=== PATIENT | female | born 1995 | race Caucasian/White ===

== ENCOUNTER 2018-06-28 05:27 | Emergency (ER) | payer BC ==
[2018-06-28] MEDS ORDERED: SODIUM CHLORIDE 1,000 ML IV STA (06:14)
[2018-06-28] MEDS ORDERED: ACETAMINOPHEN 1000 MG/100 ML VIAL (NON FORMULARY) IVPB ONE (06:14)
[2018-06-28] MEDS ORDERED: ONDANSETRON 4 MG/2 ML VIAL IVPUSH ONE (06:14)
--- NOTE | 2018-06-28 06:21 | PDOC ---
History of Present Illness - General Chief Complaint: Pain, Acute Stated Complaint: ABDOMINAL PAIN/9WKS Time Seen by Provider: 06/28/18 06:14 History Source: Patient Exam Limitations: No Limitations - History of Present Illness Travel History: No Initial Comments: 06/28/18 06:16 HISTORY OF PRESENT ILLNESS: This a 22-year-old prima who is approximately 9 weeks is unsure of her LMP presents emergency Department with right upper quadrant pain starting at approximately 5 AM this morning. Patient states the pain came on sharp in intensity and is slowly subsided since initial presentation. Patient endorses one episode of vomiting when the pain had started. Patient had not eaten any food this morning but had a grilled cheese sandwich for dinner last night. Patient has not taken any medications for pain prior to arrival. she states she had a ultrasound done which showed an IUP. Patient is CUSTOMS INSPECTOR is Dr. Tinsley No recent travel or sick contacts. PAST MEDICAL HISTORY: Denies past medical history SURGICAL HISTORY: Denies ALLERGIES: No known drug allergies REVIEW OF SYSTEMS General/Constitutional: Denies fever or chills. Denies weakness, weight change. HEENT: Denies change in vision. Denies ear pain or discharge. Denies sore throat. Cardiovascular: Denies chest pain or shortness of breath. Respiratory: Denies cough, wheezing, or hemoptysis. Gastrointestinal: RUQ pain. +nausea, +vomiting. Denies diarrhea or constipation. Denies rectal bleeding. Genitourinary: Denies dysuria, frequency, or change in urination. CUSTOMS INSPECTOR: Denies vaginal bleeding. Musculoskeletal: Denies joint or muscle swelling or pain. Denies neck or back pain. Skin and breasts: Denies rash or easy bruising. Neurologic: Denies headache, vertigo, loss of consciousness, or loss of sensation. Psychiatric: Denies depression or anxiety. Endocrine: Denies increased thirst. Denies abnormal weight change. Hematologic/Lymphatic: Denies anemia, easy bleeding, or history of blood clots. Allergic/Immunologic: Denies hives or skin allergy. Denies latex allergy. PHYSICAL EXAM General Appearance: Well-appearing, appropriately dressed. No apparent distress , no intoxication. HEENT: EOMI, PERRLA, normal ENT inspection, normal voice, TMs normal, pharynx normal. No conjunctival pallor. No photophobia, scleral icterus. Neck: Supple. Trachea midline. No tenderness, rigidity, carotid bruit, stridor , lymphadenopathy, or thyromegaly. Respiratory/Chest: Lungs CTAB. No shortness of breath, chest tenderness, respiratory distress, accessory muscle use. No crackles, rales, rhonchi, stridor , wheezing, dullness Cardiovascular: RRR. S1, S2. No JVD, murmur, bradycardia, tachycardia. Vascular Pulses: Dorsalis-Pedis (R): 2+, Dorsalis-Pedis (L): 2+ Gastrointestinal/Abdominal: Normal bowel sounds. Abdomen soft, non-distended. RUQ tenderness. No rebound tenderness. +guarding. No organomegaly, pulsatile mass, hernia, hepatomegaly, splenomegaly. Lymphatic: No adenopathy, tenderness. Musculoskeletal/Extremities: Normal inspection. FROM of all extremities, normal capillary refill. Pelvis Stable. No CVA tenderness. No tenderness to extremities, pedal edema, swelling, erythema or deformity. Integumentary: Appropriate color, dry, warm. No cyanosis, erythema, jaundice or rash Neurologic: student teacher II-XII intact. Fully oriented, alert. Appropriate mood/affect. Motor strength 5/5. No appreciable EOM palsy, facial droop or sensory deficit. Past History - Past Medical History Allergies/Adverse Reactions: Allergies Allergy/AdvReac Type Severity Reaction Status Date / Time No Known Allergies Allergy Verified 06/28/18 06:10 Home Medications: Ambulatory Orders Enoxaparin [Lovenox -] 40 mg SQ DAILY 06/28/18 Ondansetron [Zofran Odt -] 4 mg SL TID PRN #21 od.tablet 06/28/18 - Suicide/Smoking/Psychosocial Hx Smoking History: Never smoked Have you smoked in the past 12 months: No Information on smoking cessation initiated: No Hx Alcohol Use: No Drug/Substance Use Hx: No *Physical Exam - Vital Signs Last Vital Signs Temp Pulse Resp BP Pulse Ox 98.1 F 79 18 113/70 98 06/28/18 06:08 06/28/18 06:08 06/28/18 06:08 06/28/18 06:08 06/28/18 06:08 ED Treatment Course - LABORATORY CBC & Chemistry Diagram: 06/28/18 06:46 06/28/18 06:46 - RADIOLOGY Radiology Studies Ordered: Category Date Time Status GALLBLADDER US [US] Stat Ultrasound 06/28/18 06:15 Ordered Medical Decision Making - Medical Decision Making 06/28/18 06:21 A/P: 22-year-old primigravida approximately 9 weeks gestation with right upper quadrant pain Right upper quadrant tenderness Guarding present No CVA tenderness DDx: Cholecystitis, choledocholithiasis, GERD, gastritis, kidney stone, pancreatitis Labs, urine, normal saline, IV Tylenol, ultrasound 06/28/18 06:43 EKG reviewed by me as interpreted by Dr. Paul: Sinus rhythm with rate of 62. Normal intervals noted. No ischemic changes present *DC/Admit/Observation/Transfer Diagnosis at time of Disposition: RUQ abdominal pain, First trimester Nausea & vomiting Qualifiers: Vomiting type: unspecified Vomiting Intractability: non-intractable Qualified Code(s): R11.2 - Nausea with vomiting, unspecified - Discharge Dispostion Disposition: HOME Condition at time of disposition: Stable - Prescriptions Prescriptions: Ondansetron [Zofran Odt -] 4 mg SL TID PRN #21 od.tablet PRN Reason: nausea - Referrals Referrals: Junie Abernathy [Primary Care Provider] - - Patient Instructions Printed Discharge Instructions: Common Discomforts and Bodily Changes During Additional Instructions: your labs was normal. your abdominal ultrasound was normal as well. Your pain is most likely related. Tylenol as needed for pain and prescribed medication as needed for nausea and vomiting. follow-up with DYE PADDER OPERATOR - Post Discharge Activity
[2018-06-28] MEDS ORDERED: ACETAMINOPHEN INJECTION 100 ML IVPB ONE (06:44)
[2018-06-28] MEDS ORDERED: ONDANSETRON 4 MG/2 ML VIAL ONE (06:44)
[2018-06-28 06:52] VITALS: BMI 29.3
[2018-06-28 07:10] LABS: BASO % 0.9 % (0-2.0); EOS % 1.1 % (0-4.5); HEMATOCRIT 36.7 % (32.4-45.2); HEMOGLOBIN 11.7 GM/dL (10.7-15.3); LYMPH % 22.7 % (8-40); MCH 25.6 pg (25.7-33.7); MCHC 31.8 g/dl (32.0-36.0); MEAN CELL VOLUME 80.4 fl (80-96); MONO % 6.4 % (3.8-10.2); NEUT % 68.9 % (42.8-82.8); PLATELET COUNT 241 K/MM3 (134-434); RBC 4.57 M/mm3 (3.60-5.2); RDW 14.2 % (11.6-15.6); WHITE BLOOD COUNT 9.5 K/mm3 (4.0-10.0)
--- NOTE | 2018-06-28 07:47 | PDOC ---
*Physical Exam - Vital Signs Last Vital Signs Temp Pulse Resp BP Pulse Ox 98.1 F 79 18 113/70 98 06/28/18 06:08 06/28/18 06:08 06/28/18 06:08 06/28/18 06:08 06/28/18 06:08 - Physical Exam Comments: 06/28/18 07:43 I resumed care of this 22-year-old at 9 weeks present with right upper quadrant pain, nausea and vomiting since this morning. Tylenol given for pain and Zofran given for nausea vomiting. Abdominal ultrasound pending to rule out cholecystitis. EKG shows normal sinus rhythm. General Appearance: Yes: Nourished, Appropriately Dressed. No: Apparent Distress HEENT: positive: Normal ENT Inspection Neck: positive: Supple Respiratory/Chest: positive: Lungs Clear. negative: Respiratory Distress, Accessory Muscle Use Cardiovascular: positive: Regular Rhythm, Regular Rate Gastrointestinal/Abdominal: positive: Tender (mild URQ), Flat, Soft. negative: Organomegaly, Pulsatile Mass Musculoskeletal: positive: Normal Inspection. negative: CVA Tenderness Extremity: positive: Normal Inspection Integumentary: positive: Normal Color Neurologic: positive: Fully Oriented, Alert, Normal Mood/Affect ED Treatment Course - LABORATORY CBC & Chemistry Diagram: 06/28/18 06:46 06/28/18 06:46 - ADDITIONAL ORDERS Additional order review: 06/28/18 06:46 RBC 4.57 MCV 80.4 MCHC 31.8 L RDW 14.2 MPV 9.0 Neutrophils % 68.9 Lymphocytes % 22.7 Monocytes % 6.4 Eosinophils % 1.1 Basophils % 0.9 - Medications Given in the ED: ED Medications Discontinued Medications Generic Name Dose Route Start Last Admin Trade Name Malini PRN Reason Stop Dose Admin Acetaminophen 1,000 mg 06/28/18 06:14 06/28/18 06:46 Ofirmev Injection - IVPB 06/28/18 06:15 1,000 mg ONCE ONE Administration Sodium Chloride 1,000 mls @ 1,000 mls/hr 06/28/18 06:14 06/28/18 06:45 Normal Saline - IV 06/28/18 07:13 1,000 mls/hr ASDIR STA Administration Ondansetron HCl 4 mg 06/28/18 06:14 06/28/18 06:46 Zofran Injection IVPUSH 06/28/18 06:15 4 mg ONCE ONE Administration Medical Decision Making - Medical Decision Making 06/28/18 07:45 I assumed care of this 22-year-old at 9 weeks presented right upper quadrant pain with nausea and vomiting since this morning. Labs sent. Tylenol given for pain. Zofran given for nausea vomiting. Abdominal ultrasound ordered to rule out cholecystitis. EKG shows normal sinus rhythm. Treat based on imaging results 06/28/18 10:20 abdominal ultrsound and labs unremarkable. patient symptoms improved. pain likely related. pt stable for discharge on cerservative tx for pain with Tylenol and zofran prn for N/V *DC/Admit/Observation/Transfer Diagnosis at time of Disposition: RUQ abdominal pain, First trimester Nausea & vomiting Qualifiers: Vomiting type: unspecified Vomiting Intractability: non-intractable Qualified Code(s): R11.2 - Nausea with vomiting, unspecified - Discharge Dispostion Disposition: HOME Condition at time of disposition: Stable Decision to Admit order: No - Prescriptions Prescriptions: Ondansetron [Zofran Odt -] 4 mg SL TID PRN #21 od.tablet PRN Reason: nausea - Referrals Referrals: Junie Abernathy [Primary Care Provider] - - Patient Instructions Printed Discharge Instructions: Common Discomforts and Bodily Changes During Additional Instructions: your labs was normal. your abdominal ultrasound was normal as well. Your pain is most likely related. Tylenol as needed for pain and prescribed medication as needed for nausea and vomiting. follow-up with SCREENPLAY WRITER - Post Discharge Activity
[2018-06-28 08:10] LABS: ALBUMIN 3.3 g/dl (3.4-5.0); ALK PHOS 57 U/L (45-117); ANION GAP 7 MMOL/L (8-16); BILIRUBIN,TOTAL 0.4 mg/dL (0.2-1); BLOOD UREA NITROGEN 6 mg/dL (7-18); CALCIUM 8.6 mg/dL (8.5-10.1); CHLORIDE 105 mmol/L (98-107); CO2 25 mmol/L (21-32); CREATININE 0.5 mg/dL (0.55-1.3); GLUCOSE,RANDOM 81 mg/dL (74-106); LIPASE 142 U/L (73-393); POTASSIUM 3.9 mmol/L (3.5-5.1); SGOT/AST 15 U/L (15-37); SGPT/ALT 26 U/L (13-61); SODIUM 138 mmol/L (136-145); TOT PROT 6.3 g/dl (6.4-8.2)
[2018-06-28 10:07] LABS: URINE APPEARANCE CLEAR; URINE BILIRUBIN NEGATIVE (<2.0 mg/dL); URINE COLOR STRAW; URINE GLUCOSE (UA) NEGATIVE (NEGATIVE); URINE KETONE NEGATIVE (NEGATIVE); URINE LEUK ESTERASE NEGATIVE (NEGATIVE); URINE NITRITE NEGATIVE (NEGATIVE); URINE PROTEIN NEGATIVE (NEGATIVE); URINE UROBILINOGEN NEGATIVE mg/dL (0.2-1.0)
[2018-06-28 10:34] VITALS: BP 116/72; PULSE 75; TEMP 98
--- NOTE | 2018-06-28 12:35 | EKG ---
Test Reason : Blood Pressure : / mmHG Vent. Rate : 062 BPM Atrial Rate : 062 BPM P-R Int : 164 ms QRS Dur : 088 ms QT Int : 424 ms P-R-T Axes : 054 005 022 degrees QTc Int : 430 ms NORMAL SINUS RHYTHM WITH SINUS ARRHYTHMIA NORMAL ECG NO PREVIOUS ECGS AVAILABLE Confirmed by MAJOR COATES MD ([id number]) on 06/28/2018 12:35:18 PM Referred By: Confirmed By:MAJOR COATES MD
== END 2018-06-28 10:34 | disposition home or self-care (01) ==
LOC: JER 05:27
PROC: 3E033NZ Introduction of Analgesics, Hypnotics, Sedatives into Peripheral Vein, Percutaneous Approach (ICD-10-PCS; principal; 2018-06-28)
PROC: 3E033GC Introduction of Other Therapeutic Substance into Peripheral Vein, Percutaneous Approach (ICD-10-PCS; 2018-06-28)
DX: O26.891 Other specified pregnancy related conditions, first trimester (principal); O21.8 Other vomiting complicating pregnancy; Z3A.09 9 weeks gestation of pregnancy
CPT/HCPCS: 36415; 76705-TC; 80053; 81003; 83690; 84702; 85025; 86850; 86900; 86901; 87086; 93005; 93010; 99282-25; J0131; J7030

== ENCOUNTER 2019-01-14 08:53 | Emergency (ER) | payer BC ==
[2019-01-14 08:59] VITALS: BP 138/75; PULSE 85; BMI 37.5
[2019-01-14 09:00] VITALS: TEMP 98.2
[2019-01-14 10:13] LABS: EPI CELLS 0.4 /HPF (0-5/HPF); HYALINE CASTS 1 /lpf (0-8); PH,URINE 6.5 (5.0-8.0); URINE APPEARANCE CLEAR; URINE BACTERIA 21.3 /hpf (NEGATIVE); URINE BILIRUBIN NEGATIVE (NEGATIVE); URINE COLOR YELLOW; URINE GLUCOSE (UA) NEGATIVE (NEGATIVE); URINE KETONE NEGATIVE (NEGATIVE); URINE LEUK ESTERASE NEGATIVE (NEGATIVE); URINE NITRITE NEGATIVE (NEGATIVE); URINE PROTEIN NEGATIVE (NEGATIVE); URINE RBC 1 /hpf (0-4); URINE UROBILINOGEN 0.2 mg/dL (0.2-1.0); URINE WBC 0 /hpf (0-5)
--- NOTE | 2019-01-14 10:43 | PDOC ---
History of Present Illness - General Chief Complaint: Nausea/Vomiting Stated Complaint: COLD SYMPTOMS Time Seen by Provider: 01/14/19 09:14 History Source: Patient Exam Limitations: No Limitations - History of Present Illness Travel History: No Initial Comments: 01/14/19 12:23 Her own baby shower last saturday, when approximately 58 people have now contracted some type of gastroenteritis. [facility] is active in investigation, but patient here at 38 weeks states had onset of symptoms last night. States is nauseous but has had no vomiting, but has had multiple diarrhea and watery stools. Denies any contractions, states has had some smearing discharge but no magi blood, no copious amount of fluid, water has not broken. Some intermittent cramping but did not feel contractive type cramps. States this felt mildly feverish but not significant. No other symptoms. ill with same. Timing/Duration: reports: getting worse, intermittent Quality: reports: moderate, cramping Abdominal Pain Onset Location: reports: generalized abdomen Pain Radiation: reports: no radiation Activities at Onset: reports: none Past History - Travel Traveled outside of the country in the last 30 days: No Close contact w/someone who was outside of country & ill: No - Past Medical History Allergies/Adverse Reactions: Allergies Allergy/AdvReac Type Severity Reaction Status Date / Time No Known Allergies Allergy Verified 01/14/19 08:56 Home Medications: Ambulatory Orders Heparin - 0 unit SQ BID 01/14/19 COPD: No - Suicide/Smoking/Psychosocial Hx Smoking History: Never smoked Have you smoked in the past 12 months: No Information on smoking cessation initiated: No Hx Alcohol Use: No Drug/Substance Use Hx: No Substance Use Type: None Review of Systems - Review of Systems Able to Perform ROS?: Yes Is the patient limited Luxembourger proficient: Yes Constitutional: Yes: Symptoms Reported, See HPI, Chills, Fever, Malaise HEENTM: Yes: Symptoms Reported, See HPI Respiratory: Yes: See HPI, Cough ABD/GI: Yes: See HPI, Abdominal Distended (38 week abdomen), Diarrhea, Nausea. No: Constipated Integumentary: Yes: Symptoms Reported, See HPI, Pallor Neurological: Yes: Symptoms reported All Other Systems: Reviewed and Negative *Physical Exam - Vital Signs Last Vital Signs Temp Pulse Resp BP Pulse Ox 98.2 F 85 16 138/75 98 01/14/19 08:56 01/14/19 08:56 01/14/19 08:56 01/14/19 08:56 01/14/19 08:56 - Physical Exam General Appearance: Yes: Nourished, Appropriately Dressed, Apparent Distress, Mild Distress HEENT: positive: ANGELINA, Normal ENT Inspection, TMs Normal, Pharynx Normal, Nasal Congestion. negative: Pharyngeal Erythema Neck: positive: Supple, Lymphadenopathy (R), Lymphadenopathy (L). negative: Tender Respiratory/Chest: positive: Lungs Clear, Normal Breath Sounds Gastrointestinal/Abdominal: positive: Soft. negative: Tender, Distended, Guarding, Rebound Musculoskeletal: positive: Normal Inspection. negative: CVA Tenderness (L), Vertebral Tenderness Extremity: positive: Normal Capillary Refill, Normal Inspection. negative: Tender Integumentary: positive: Dry, Warm, Pale Neurologic: positive: ironer II-XII NML intact, Fully Oriented, Alert, Normal Mood/ Affect, Normal Response, Motor Strength 12/28 ED Treatment Course - ADDITIONAL ORDERS Additional order review: Laboratory Results 01/14/19 10:00 Urine Color Yellow Urine Appearance Clear Urine pH 6.5 Ur Specific [place] 1.005 L Urine Protein Negative Urine Glucose (UA) Negative Urine Ketones Negative Urine Blood Trace Urine Nitrite Negative Urine Bilirubin Negative Urine Urobilinogen 0.2 Ur Leukocyte Esterase Negative Urine WBC (Auto) 0 Urine RBC (Auto) 1 Urine Casts (Auto) 1 U Epithel Cells (Auto) 0.4 Urine Bacteria (Auto) 21.3 Progress Note - Progress Note Progress Note: Gastroenteritis/food poisoning. Case is been taken over by Department of Health who has contacted infectious control here. Will take responsibility for stool samples which to have been collected for O&P, neurovirus, culture. Patient understands Will follow-up with health Department and PROCESS PLANT OPERATOR Medical Decision Making - Medical Decision Making 01/14/19 12:21 heart monitoring reveals a normal variance and no pathology after 20 minutes of monitoring. Labor and delivery nurse Madison, cleared patient. Reviewed need for rehydration with mother, as patient is nontoxic, feels well enough to return home and will continue to rehydrate. Able to collect stool samples and sent to lab for evaluation. reports help department curious and suspecting normal virus as causative agent for multiple people's infectious diarrhea. Will follow-up with health Department and COMMUNITY HEALTH NURSE *DC/Admit/Observation/Transfer Diagnosis at time of Disposition: Gastroenteritis - Discharge Dispostion Disposition: HOME Condition at time of disposition: Stable Decision to Admit order: No - Referrals Referrals: Junie Abernathy [Primary Care Provider] - - Patient Instructions Printed Discharge Instructions: DI for Viral Gastroenteritis -- Adult Additional Instructions: Rest, drink lots of fluids: Teas, water, soups Viky betzaida, carbonated beverages for the bubbles May try peppermint teas Avoid heavy , spicy or fatty foods until symptoms have resolved Avoid contact with others until fevers and symptoms resolved Lots of handwashing and good hygiene Continue [id number] medications for symptomatic relief Tylenol for fever and pain Followup with private physician in one to 2 days as needed Return to emergency department for worsened symptoms, fevers, dehydration - Post Discharge Activity Forms/Work/School Notes: Back to Work, Parent(s) Back to Work Note
== END 2019-01-14 12:43 | disposition home or self-care (01) ==
LOC: JERFT 08:53
DX: O26.893 Other specified pregnancy related conditions, third trimester (principal); Z3A.38 38 weeks gestation of pregnancy; K52.9 Noninfective gastroenteritis and colitis, unspecified
CPT/HCPCS: 81003; 87045; 87046; 87177; 87205; 87209; 87798; 99281-25

== ENCOUNTER 2019-01-21 03:00 | Inpatient (IN) | payer BC ==
[~2019-01-21 03:00] MED LIST: BUTORPHANOL TARTRATE 2 MG/ML VIAL IVPB ONE; PROMETHAZINE HCL 25 MG/1 ML VIAL IVPB ONE
[2019-01-21] MEDS: DEXTROSE 5%-LACTATED RINGERS 1,000 ML IV SCH (04:00)
[2019-01-21] MEDS ORDERED: AMPICILLIN - 2 GM in SODIUM CHLORIDE 100 ML IVPB ONE (04:15)
[2019-01-21 06:33] LABS: PROTHROMBIN TIME (PATIENT) 11.2 SEC (9.7-13.0)
[2019-01-21 06:34] LABS: ACTIVATED PTT 26.9 SECONDS (25.2-36.5); INR 0.95 (0.83-1.09)
[2019-01-21 06:37] LABS: HEMATOCRIT 33.9 % (32.4-45.2); HEMOGLOBIN 10.9 GM/dL (10.7-15.3); MCH 26.6 pg (25.7-33.7); MCHC 32.1 g/dl (32.0-36.0); MEAN CELL VOLUME 82.8 fl (80-96); MEAN PLT VOLUME 9.1 fl (7.5-11.1); PLATELET COUNT 204 K/MM3 (134-434); RBC 4.09 M/mm3 (3.60-5.2); RDW 13.9 % (11.6-15.6); WHITE BLOOD COUNT 12.8 K/mm3 (4.0-10.0)
[2019-01-21 07:09] VITALS: BMI 37.5
[2019-01-21] MEDS ORDERED: TUBERCULIN PPD 5 TU/0.1ML SYRINGE (IN PATIENT USE ONLY) ID ONE (07:30)
[2019-01-21 07:32] LABS: CALCIUM 8.6 mg/dL (8.5-10.1); CREATININE 0.4 mg/dL (0.55-1.3); POTASSIUM 3.6 mmol/L (3.5-5.1)
[2019-01-21 07:33] LABS: ALBUMIN 2.6 g/dl (3.4-5.0); BILIRUBIN,TOTAL 0.3 mg/dL (0.2-1); TOT PROT 5.8 g/dl (6.4-8.2)
[2019-01-21] MEDS ORDERED: FENTANYL/BUPIVACAINE/NS/PF - PCEA - 50 ML DISP.SYRIN EP ONE (08:01)
[2019-01-21] MEDS ORDERED: LIDO 2%/EPI 1:200000 PRESRVFRE (20 ML SDVIAL) ONE (08:12)
[2019-01-21] MEDS ORDERED: BUPIVACAINE HCL/PF 0.25% (2.5MG/ML) 10 ML VIAL ONE (08:12)
[2019-01-21] MEDS ORDERED: AMPICILLIN - 1 GM in SODIUM CHLORIDE 100 ML IVPB SCH (08:15)
[2019-01-21] MEDS ORDERED: NALOXONE HCL 0.4 MG/ML VIAL IVPUSH PRN (08:38)
[2019-01-21] MEDS ORDERED: FENTANYL/BUPIVACAINE/NS/PF - PCEA - 50 ML DISP.SYRIN EP SCH (08:45)
--- NOTE | 2019-01-21 09:06 | HP ---
Past Medical History - Admission Chief Complaint: Painful contractions History of Present Illness: Late entry from 08 Taking over patient care this a.m. 23 y/o P0 female with SIUP at 39 weeks here in labor. Admitted overnight in active labor, received Stadol/phenergan around 5 am for pain control. No c/o VB /leaking. +FM. Pt now s/p epidural and comfortable. complicated by patient being on VTe PPx due to patient being heterozygous for multiple thrombophilias (Prothrombin, Antithrombin III, Factor V Leiden, MTHFR). Last dose of Heparin on 01/19 in the evening. History Source: Patient, Medical Record Limitations to Obtaining History: No Limitations - Past Medical History Cardiovascular: No: HTN Pulmonary: No: Asthma Gastrointestinal: No: GERD, Irritable Bowel Disease Hepatobiliary: No: Hepatitis B, Hepatitis C Reproductive: No: Fibroids, PID ...: 1 ...Para: 0 ... Weeks Gestation by Dates: 39 ...EDC by Dates: 01/27/19 Heme/Onc: Yes: Other (heterozygous for multiple thrombophilias). No: Anemia Psych: No: Bipolar, Depression - Past Surgical History Past Surgical History: Yes: None Hx Myomectomy: No Hx Transabdominal Cerclage: No - Smoking History Smoking history: Never smoked Have you smoked in the past 12 months: No - Alcohol/Substance Use Hx Alcohol Use: No - Social History Usual Living Arrangement: Yes: With Spouse ADL: Independent History of Recent Travel: No Home Medications - Allergies Allergies/Adverse Reactions: Allergies Allergy/AdvReac Type Severity Reaction Status Date / Time No Known Allergies Allergy Verified 01/14/19 08:56 - Home Medications Home Medications: Ambulatory Orders Heparin - 0 unit SQ BID 01/14/19 Review of Systems - Review of Systems Constitutional: reports: No Symptoms Eyes: reports: No Symptoms HENT: reports: No Symptoms Neck: reports: No Symptoms Cardiovascular: reports: No Symptoms Respiratory: reports: No Symptoms Gastrointestinal: reports: No Symptoms Genitourinary: reports: No Symptoms Breasts: reports: No Symptoms Reported Musculoskeletal: reports: No Symptoms Integumentary: reports: No Symptoms Neurological: reports: No Symptoms Endocrine: reports: No Symptoms Hematology/Lymphatic: reports: No Symptoms Psychiatric: reports: No Symptoms Physical Exam - Maternity Vital Signs: Vital Signs Temperature 98.1 F 01/21/19 07:02 Pulse Rate 86 01/21/19 07:02 Respiratory Rate 20 01/21/19 07:02 Blood Pressure 131/76 01/21/19 07:02 O2 Sat by Pulse Oximetry (%) Constitutional: Yes: Well Nourished, No Distress, Calm Eyes: Yes: EOM Intact HENT: Yes: Atraumatic Neck: Yes: Supple Cardiovascular: Yes: Regular Rate and Rhythm Lungs: Clear to auscultation - Abdominal Exam/OB Number of Fetuses: Single Presentation: Vertex Contractions: Yes Regularity: Irregular Intensity: Mod/Strong Category: I Accelerations: Uniform Decelerations: None - Vaginal Exam/OB Vaginal Bleediing: No Dilatation (cm): 10 Effacement (%): 100 - Physical Exam Psychiatric: Yes: Alert, Oriented - Labs Lab Results: CBC, BMP 01/21/19 03:25 01/21/19 03:25 Hemorrhage Risk Assessment - Risk Factors High Risk Factors: Yes: None Risk Score: 0 Risk Level: Low Risk Problem List - Problems (1) Active labor at term Code(s): [id number] - (2) 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 continue expectant management GBS negative anticipate
[2019-01-21] MEDS ORDERED: OXYTOCIN 20 UNITS in 0.9% NS 20 UNIT/1,000 ML INFUS.BAG IV ONE (09:22)
[2019-01-21] MEDS ORDERED: OXYTOCIN 30 UNITS in 0.9% NS 30 UNIT/500 ML INFUS.BAG IVPB SCH (09:45)
[2019-01-21] MEDS: OXYTOCIN 20 UNITS in 0.9% NS 20 UNIT/1,000 ML INFUS.BAG IV SCH ×2 (12:00→16:43)
--- NOTE | 2019-01-21 12:08 | PN ---
Delivery - Delivery Vaginal Delivery: No Problems Type of Anesthesia: Epidural Episiotomy/Laceration: 2nd degree EBL (cc): 250 Delivery, Single - Stages of Labor Date of Delivery: 01/21/19 Date Placenta Delivered: 01/21/19 Placenta: Yes: Spontaneous - Condition of Infant Soap Maker/Rfid Manager Present: No Gender: Female Position: Right, OA - 1 Minute Total Score: 9 5 Minutes Total Score: 9 - Feeding Plan Initial Plan: Exclusive throughout hospitalization Remarks - Remarks Remarks: Uncomplicated from RAFAEL position across 2nd degree laceration anterior shoulder (left) delivered with ease along with remainder of 3vc noted, clamped and cut placenta delivered in tact, spontaneously 2nd degree laceration repaired with 2-0 vicryl suture in usual fashion sponge needle and instrument count correct mom stable baby to well baby nursery pitocin infusing IV after delivery
[2019-01-21] MEDS ORDERED: METHYLERGONOVINE MALEATE 0.2 MG/1 ML AMP IM PRN (12:10)
[2019-01-21] MEDS ORDERED: WITCH HAZEL 50% (TUCKS) 40 PAD/JAR PAD TP PRN (12:10)
[2019-01-21] MEDS ORDERED: BENZOCAINE 28 GM HEMORRHOIDAL OINTMENT TP PRN (12:10)
[2019-01-21] MEDS ORDERED: BISACODYL 10 MG SUPP.RECT RC PRN (12:10)
[2019-01-21] MEDS ORDERED: IBUPROFEN 600 MG TABLET (FP) PO ONE (12:56)
[2019-01-21] MEDS ORDERED: ACETAMINOPHEN 325 MG TABLET (FP) ONE (12:56)
[2019-01-21] MEDS: ACETAMINOPHEN 325 MG TABLET (FP) PO PRN (12:59)
[2019-01-21] MEDS: IBUPROFEN 600 MG TABLET (FP) PO PRN (12:59)
[2019-01-21 14:04] LABS: RPR NONREACTIVE (NONREACTIVE)
[2019-01-21] MEDS: BENZOCAINE 20% 57 GM BOTTLE TP PRN (14:41)
[2019-01-21] MEDS: FERROUS SO4 325 MG TABLET (FP) PO SCH (17:06)
[2019-01-22] MEDS: ACETAMINOPHEN 325 MG TABLET (FP) PO PRN ×2 (02:01→17:16)
[2019-01-22] MEDS: IBUPROFEN 600 MG TABLET (FP) PO PRN ×2 (02:01→17:15)
[2019-01-22] MEDS: DEXTROSE 5%-LACTATED RINGERS 1,000 ML IV SCH (03:37)
[2019-01-22 08:17] LABS: BASO % 0.2 % (0-2.0); EOS % 0.8 % (0-4.5); HEMATOCRIT 29.6 % (32.4-45.2); HEMOGLOBIN 9.8 GM/dL (10.7-15.3); LYMPH % 18.8 % (8-40); MCH 27.2 pg (25.7-33.7); MCHC 33.1 g/dl (32.0-36.0); MEAN CELL VOLUME 82.1 fl (80-96); MEAN PLT VOLUME 9.1 fl (7.5-11.1); MONO % 8.8 % (3.8-10.2); NEUT % 71.4 % (42.8-82.8); PLATELET COUNT 194 K/MM3 (134-434); RBC 3.61 M/mm3 (3.60-5.2)
[2019-01-22] MEDS: FERROUS SO4 325 MG TABLET (FP) PO SCH ×3 (08:34→17:07)
[2019-01-22] MEDS: ENOXAPARIN NA (PORCINE) 40 MG/0.4 ML DISP.SYRIN SQ SCH (09:57)
[2019-01-22] MEDS ORDERED: DIPHTH,PERTUSS(ACELL),TET 0.5 ML DISP.SYRIN IM ONE (10:00)
[2019-01-22 11:39] LABS: ANISOCYTOSIS 0; MACROCYTOSIS 0; PLATELET ESTIMATE NORMAL
--- NOTE | 2019-01-22 13:59 | PN ---
Post Progress Note - Subjective Subjective: Pt seen/evaluated and doing well. Perineal laceration sore, otherwise no complaints. Ambulating, voiding, passing flatus. tolerating diet. VB/lochia small. No other issues or concerns. Type of Delivery: Vital Signs: Vital Signs Temperature 97.8 F 01/22/19 07:20 Pulse Rate 74 01/22/19 07:20 Respiratory Rate 20 01/22/19 07:20 Blood Pressure 129/61 01/22/19 07:20 O2 Sat by Pulse Oximetry (%) 99 01/21/19 14:30 Breast Exam: Yes: Soft Uterus: Yes: Fundus Firm Abdomen/GI: Yes: Abdomen soft Lochia: Yes: Rubra Lochia, amount: Small Extremities: Yes: Calves non-tender Perineum: Yes: Laceration (2nd degree) Activity: Ambulating - Labs Labs: CBC WBC 13.0 K/mm3 (4.0-10.0) H 01/22/19 07:15 RBC 3.61 M/mm3 (3.60-5.2) 01/22/19 07:15 Hgb 9.8 GM/dL (10.7-15.3) L 01/22/19 07:15 Hct 29.6 % (32.4-45.2) L 01/22/19 07:15 MCV 82.1 fl (80-96) 01/22/19 07:15 MCH 27.2 pg (25.7-33.7) 01/22/19 07:15 MCHC 33.1 g/dl (32.0-36.0) 01/22/19 07:15 RDW 14.0 % (11.6-15.6) 01/22/19 07:15 Plt Count 194 K/MM3 (134-434) 01/22/19 07:15 MPV 9.1 fl (7.5-11.1) 01/22/19 07:15 Absolute Neuts (auto) 9.3 K/mm3 (1.5-8.0) H 01/22/19 07:15 Neutrophils % 71.4 % (42.8-82.8) 01/22/19 07:15 Neutrophils % (Manual) 76.5 % (42.8-82.8) 01/22/19 07:15 Band Neutrophils % 3.1 % 01/22/19 07:15 Lymphocytes % 18.8 % (8-40) 01/22/19 07:15 Lymphocytes % (Manual) 17.4 % (8-40) 01/22/19 07:15 Monocytes % 8.8 % (3.8-10.2) 01/22/19 07:15 Monocytes % (Manual) 3 % (3.8-10.2) L 01/22/19 07:15 Eosinophils % 0.8 % (0-4.5) 01/22/19 07:15 Eosinophils % (Manual) 0.0 % (0-4.5) 01/22/19 07:15 Basophils % 0.2 % (0-2.0) 01/22/19 07:15 Basophils % (Manual) 0.0 % (0-2.0) 01/22/19 07:15 Myelocytes % (Man) 0 % (0-2) 01/22/19 07:15 Promyelocytes % (Man) 0 % (0-2) 01/22/19 07:15 Blast Cells % (Manual) 0 % (0-0) 01/22/19 07:15 Nucleated RBC % 0 % (0-0) 01/22/19 07:15 Metamyelocytes 0 % (0-2) 01/22/19 07:15 Hypochromia 0 01/22/19 07:15 Platelet Estimate Normal 01/22/19 07:15 Polychromasia 0 01/22/19 07:15 Poikilocytosis 0 01/22/19 07:15 Anisocytosis 0 01/22/19 07:15 Microcytosis 0 01/22/19 07:15 Macrocytosis 0 01/22/19 07:15 Problem List - Problems (1) Active labor at term Code(s): UZM7254 - (2) 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
[2019-01-22] MEDS ORDERED: SENNOSIDES/DOCUSATE COMBO (SENNA PLUS) TABLET (UD) PO PRN (22:00)
--- NOTE | 2019-01-23 08:00 | DS ---
Physical Exam-LITIGATION LEGAL ASSISTANT Vital Signs: Vital Signs Temperature 98.2 F 01/22/19 21:59 Pulse Rate 70 01/22/19 21:59 Respiratory Rate 18 01/22/19 21:59 Blood Pressure 122/60 01/22/19 21:59 O2 Sat by Pulse Oximetry (%) 99 01/21/19 14:30 Constitutional: Yes: Well Nourished, No Distress Eyes: Yes: Conjunctiva Clear, EOM Intact HENT: Yes: Atraumatic, Normocephalic Neck: Yes: Supple, Trachea Midline Cardiovascular: Yes: Regular Rate and Rhythm Respiratory: Yes: Regular, CTA Bilaterally Gastrointestinal: Yes: Normal Bowel Sounds, Soft ....Post : Yes: Uterus firm, Uterus non-tender Wound/Incision: Yes: Well Approximated Neurological: Yes: Alert, Oriented Psychiatric: Yes: Alert, Oriented Labs: CBC, BMP 01/22/19 07:15 01/21/19 03:25 Delivery - Delivery Vaginal Delivery: No Problems Type of Anesthesia: Epidural Episiotomy/Laceration: 2nd degree EBL (cc): 250 Delivery, Single - Stages of Labor Date 1st Stage Initiatied: 01/20/19 Time 1st Stage Initiated: 18:30 Date 2nd Stage Initiated: 01/21/19 Time 2nd Stage Initiated: 11:20 Date of Delivery: 01/21/19 Time of Delivery: 11:48 Time Placenta Delivered: 12:00 Placenta: Yes: Spontaneous - Condition of Hostel Manager/Associate Media Director Present: No Gender: Female Weight: 7 lb 5 oz Position: Right, OA Total Hours ROM (Hrs/Mins): 40min - 1 Minute Total Score: 9 5 Minutes Total Score: 9 - Feeding Plan Initial Plan: Exclusive throughout hospitalization Discharge Summary Reason For Visit: LABOR ADMIT Current Active Problems Active labor at term (Acute) Hereditary thrombophilia (Acute) Hospital Course: Pt admitted in labor on 01/21/2019, she underwent a normal on that date. Pt had an uncomplicated post course and was discharged home on day. Pt had been on Lovenox/Heparin thoughout due to being heterozygous for multiple thrombophilias, she will continue Lovenox daily for 6 weeks and follow up with her rougher helper. Condition: Good - Instructions Diet, Activity, Other Instructions: Physical activity Resume your normal everyday activity as tolerated no heavy lifting or strenuous exercise until seen by your doctor. You may walk unlimited amounts and climb stairs. You may resume driving the car when you feel safe and comfortable behind the wheel. No sexual activity as instructed for at least 6 weeks. Wound care You have stitches that will dissolve on their own. DO NOT attempt to remove them. You may shower daily, no soaking/submerging in tubs/baths/pools until cleared by your doctor. . Diet There are no dietary restrictions. Eat healthy, high-fiber foods. Drink 6 to 8 glasses of liquid each day. This will assist in keeping your bowelsregular. Pain management You may take Tylenol or Ibuprofen as needed for pain Call your doctor for any of the following: Severe pain not relieved by medication Fever of 101 or higher Excessive bleeding or drainage on dressing Inability to urinate Disposition: HOME - Home Medications Comprehensive Discharge Medication List: Ambulatory Orders Heparin - 0 unit SQ BID 01/14/19 Enoxaparin [Lovenox -] 40 mg SQ DAILY #45 disp.syrin MDD 0 01/23/19 Ibuprofen [Motrin -] 600 mg PO QID PRN #28 tablet 01/23/19
[2019-01-23] MEDS: FERROUS SO4 325 MG TABLET (FP) PO SCH ×2 (08:20→11:59)
[2019-01-23 08:44] VITALS: BP 118/54; PULSE 79; TEMP 98.7
[2019-01-23] MEDS: ENOXAPARIN NA (PORCINE) 40 MG/0.4 ML DISP.SYRIN SQ SCH (09:17)
[2019-01-23] MEDS: BENZOCAINE 20% 57 GM BOTTLE TP PRN (10:37)
== END 2019-01-23 12:15 | disposition home or self-care (01) | DRG 806 ==
LOC: JLDR 03:00 → J3W 14:31
PROVIDERS: ADMIT Obstetrics & Gynecology; ATTEND Obstetrics & Gynecology
PROC: 10E0XZZ Delivery of Products of Conception, External Approach (ICD-10-PCS; principal; 2019-01-21)
PROC: 0HQ9XZZ Repair Perineum Skin, External Approach (ICD-10-PCS; 2019-01-21)
PROC: 3E0R3BZ Introduction of Anesthetic Agent into Spinal Canal, Percutaneous Approach (ICD-10-PCS; 2019-01-21)
DX: O99.113 Other diseases of the blood and blood-forming organs and certain disorders involving the immune mechanism complicating pregnancy, third trimester (principal); D68.51 Activated protein C resistance; Z37.0 Single live birth; O70.1 Second degree perineal laceration during delivery; Z3A.39 39 weeks gestation of pregnancy
CPT/HCPCS: 36415; 59409; 80053; 85025; 85027; 85610; 85730; 86593; 86850; 86900; 86901; 87389; 90715